=== PATIENT | male | born 1945 | race Caucasian/White ===

== ENCOUNTER 2019-03-10 18:08 | Emergency (ER) | payer BC, MEDICARE ==
[2019-03-10 18:57] LABS: GLUCOSE, URINE (UA) NEGATIVE (NEGATIVE); KETONES,URINE (UA) TRACE mg/dL (NEGATIVE); LEUKOCYTE ESTERASE, URINE TRACE (NEGATIVE); NITRITE,URINE POSITIVE (NEGATIVE); OCCULT BLOOD,URINE LARGE (NEGATIVE); PROTEIN,URINE 100 mg/dL (NEGATIVE); UROBILINOGEN,URINE 1 (NORMAL) E.U./dL (NORMAL)
[2019-03-10 19:00] LABS: BILIRUBIN,URINE NEGATIVE (NEGATIVE); ICTOTEST,URINE NEGATIVE
[2019-03-10 19:01] LABS: CLARITY,URINE CLOUDY (CLEAR)
[2019-03-10 19:05] LABS: BACTERIA,URINE Many /HPF (None Seen); RBC,URINE TNTC /HPF (0-5); SQUAMOUS EPITHELIAL CELL,UR NONE SEEN (<= Few); WBC CLUMPS,URINE PRESENT
--- NOTE | 2019-03-10 19:25 | ED Physician Documentation ---
PD HPI MALE - Stated complaint Stated Complaint: BLOOD IN URINE - Chief complaint Chief Complaint: General - History obtained from History obtained from: Patient - History of Present Illness Timing - onset: Yesterday Timing - details: Abrupt onset Associated symptoms: Unable to urinate, Hematuria. No: Dysuria, Discharge, Abdominal pain Recently seen: Clinic ([address] Prescott, Urology) - Additional information Additional information: This is a 73-year-old man who presents with complaints that he has had blood in his urine for years he is never followed up with anybody about it and then about 2 weeks ago he started passing some clots so he made an appointment with the uro logist at the [facility]. He saw him for the first time about 10 days ago and they have scheduled a cystoscopy on March 21. Yesterday he started passing blood again and then at 11 AM this morning he was unable at all. He was passing clots prior to that. He denied any pain with urination. Not dizzy. He does have a prior history of TURP 5 years ago. He is on Eliquis for about the past 2-1/2 years due to a flutter and history of 4 ablations. He has no fever. Review of Systems Constitutional: denies: Fever GI: denies: Abdominal Pain : reports: Unable to Void, Hematuria. denies: Dysuria, Frequency Neurologic: denies: Near syncope PD PAST MEDICAL HISTORY - Past Medical History Cardiovascular: Hypertension, High cholesterol : Kidney stones - Past Surgical History Past Surgical History: Yes General: Cholecystectomy, Colonoscopy Cardiovascular: Other HEENT: Cataracts, Detached retina repair - Present Medications Home Medications: Ambulatory Orders Medication Instructions Recorded Confirmed Allopurinol 100 mg PO DAILY 01/07/16 01/07/16 Atorvastatin Calcium [Lipitor] 40 mg PO DAILY 01/07/16 Valsartan 40 mg PO BID 01/07/16 Amoxicillin 500 mg PO TID #30 tablet 01/08/16 Ciprofloxacin HCl [Cipro] 500 mg PO BID #20 tablet 03/10/19 - Allergies Allergies/Adverse Reactions: Allergies Allergy/AdvReac Type Severity Reaction Status Date / Time No Known Drug Allergies Allergy Verified 01/08/16 14:51 - Social History Does the pt smoke?: No Smoking Status: Never smoker Does the pt drink ETOH?: Yes PD ED PE NORMAL - Vitals Vital signs reviewed: Yes - General General: Alert and oriented X 3, No acute distress, Well developed/nourished - HEENT HEENT: Atraumatic, Other (No scleral icterus) - Abdomen Abdomen: Normal bowel sounds, Soft, Non tender, Non distended - Male Male : Other (Liao catheter had already been passed by nursing staff and there was about 750 cc of bloody urine with some clots in it.) - Derm Derm: Normal color, No rash - Neuro Neuro: Alert and oriented X 3, 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, Other (No gross neurological deficits.) Results - Vitals Vitals: Vital Signs - 24 hr 03/10/19 03/10/19 18:19 20:58 Temperature 36.6 C Heart Rate 67 70 Respiratory 18 17 Rate Blood Pressure 181/76 H 157/77 H O2 Saturation 98 95 Oxygen O2 Source Room air - Labs Labs: Laboratory Tests 03/10/19 18:32 Urine Color BROWN Urine Clarity CLOUDY Urine pH 7.0 Ur Specific [place]ett 1.020 Urine Protein 100 H Urine Glucose (UA) NEGATIVE Urine Ketones TRACE Urine Occult Blood LARGE H Urine Nitrite POSITIVE H Urine Bilirubin NEGATIVE Urine Urobilinogen 1 (NORMAL) Ur Leukocyte Esterase TRACE H Urine RBC TNTC H Urine WBC >25 H Urine WBC Clumps PRESENT Ur Squamous Epith Cells NONE SEEN Urine Bacteria Many H Ur Microscopic Review INDICATED Urine Culture Comments INDICATED PD MEDICAL DECISION MAKING - ED course Complexity details: reviewed results, d/w patient ED course: Patient got initially good relief with the catheter being passed but then he was unable to have any urine flow through it so it was irrigated per nursing staff and several clots came out after which there was good urine flow and he felt better. His urine had many red blood cells but also white blood cells and a culture has been obtained. I elected to put him on Cipro awaiting the results of the culture. He was instructed on how to deal with the Liao at home and discharged with a Liao catheter in place. He is to contact Dr. Prescott the urologist tomorrow about how long to leave the Liao in whether to come in and have it removed prior to the cystoscopy or not. Departure - Departure Disposition: 01 Home, Self Care Clinical Impression: Urinary retention Hematuria Qualifiers: Hematuria type: unspecified type Qualified Code(s): R31.9 - Hematuria, unspecified UTI (urinary tract infection) Qualifiers: Urinary tract infection type: site unspecified Hematuria presence: with hematuria Qualified Code(s): N39.0 - Urinary tract infection, site not specified Condition: Good Instructions: Leg Bag Care Dc, ED Hematuria, ED UTI Cystitis Male Follow-Up: pamela,doctor [Other] Prescriptions: Ciprofloxacin HCl [Cipro] 500 mg PO BID #20 tablet Comments: Keep the leg bag emptied. Take the Cipro as prescribed. Contact your urologist, Dr. Prescott, About the fact that you are in the emergency department passing clots and had to have a catheter placed. Return to the emergency depar tment if you are unable to urinate through the catheter. Discharge Date/Time: 03/10/19 21:00
[2019-03-10] MEDS ORDERED: CIPROFLOXACIN 250 MG TABLET PO STA (20:24)
[2019-03-10 20:59] VITALS: BP 157/77
== END 2019-03-10 21:00 | disposition home or self-care (01) ==
LOC: ED 18:08
DX: N39.0 Urinary tract infection, site not specified (principal); R31.9 Hematuria, unspecified; R33.9 Retention of urine, unspecified; Z79.01 Long term (current) use of anticoagulants; I48.92 Unspecified atrial flutter; I10 Essential (primary) hypertension; Z87.442 Personal history of urinary calculi
CPT/HCPCS: 51702; 81001; 87086; 99283; 99284; A9270; 81003

== ENCOUNTER 2019-03-12 14:24 | Emergency (ER) | payer MEDICARE ==
[2019-03-12 14:58] VITALS: BP 137/68
--- NOTE | 2019-03-12 15:14 | ED Physician Documentation ---
PD HPI MALE - Stated complaint Stated Complaint: MALE - CATHETER FLUSH - Chief complaint Chief Complaint: Abd Pain - History obtained from History obtained from: Patient (He has long-standing hematuria. Stopped his Eliquis for atrial flutter 3 days ago. Had a catheter placed which is now blocked with a clot.) Review of Systems Constitutional: reports: Reviewed and negative Cardiac: reports: Reviewed and negative Respiratory: reports: Reviewed and negative PD PAST MEDICAL HISTORY - Past Medical History Past Medical History: Yes Cardiovascular: Hypertension, High cholesterol, Atrial flutter Respiratory: None Neuro: None Endocrine/Autoimmune: None GI: None : Indwelling catheter, Kidney stones HEENT: None Psych: None Musculoskeletal: None Derm: None - Past Surgical History Past Surgical History: Yes General: Cholecystectomy, Colonoscopy Cardiovascular: Other HEENT: Cataracts, Detached retina repair - Present Medications Home Medications: Ambulatory Orders Medication Instructions Recorded Confirmed Allopurinol 100 mg PO DAILY 01/07/16 01/07/16 Atorvastatin Calcium [Lipitor] 40 mg PO DAILY 01/07/16 Valsartan 40 mg PO BID 01/07/16 Amoxicillin 500 mg PO TID #30 tablet 01/08/16 Ciprofloxacin HCl [Cipro] 500 mg PO BID #20 tablet 03/10/19 - Allergies Allergies/Adverse Reactions: Allergies Allergy/AdvReac Type Severity Reaction Status Date / Time No Known Drug Allergies Allergy Verified 01/08/16 14:51 - Social History Does the pt smoke?: No Smoking Status: Never smoker Does the pt drink ETOH?: Yes - Immunizations Immunizations are current?: Yes - POLST Patient has POLST: No PD ED PE NORMAL - Vitals Vital signs reviewed: Yes - General General: Alert and oriented X 3, No acute distress - Male Male : Other (He has a leg bag in place that is empty on initial evaluation. It was hand irrigated with sterile water during my and a large clot came out and then the urine was clear.) - Derm Derm: Normal color, Warm and dry - Extremities Extremities: No edema, No calf tenderness / cord - Neuro Neuro: Alert and oriented X 3, Normal speech Results - Vitals Vitals: Vital Signs - 24 hr 03/12/19 14:50 Temperature 37.0 C Heart Rate 73 Respiratory 16 Rate Blood Pressure 137/68 H O2 Saturation 95 Oxygen O2 Source Room air Departure - Departure Disposition: 01 Home, Self Care Clinical Impression: Urinary retention Hematuria Qualifiers: Hematuria type: gross Qualified Code(s): R31.0 - Gross hematuria Condition: Good Record reviewed to determine appropriate education?: Yes Instructions: ED Catheter Care Liao Comments: Drink plenty of fluids. Discuss this happening with your urologist to see if you can get an earlier than 9 days from now which is when you currently have an appointment.
== END 2019-03-12 15:49 | disposition home or self-care (01) ==
LOC: ED 14:24
DX: R31.0 Gross hematuria (principal); R33.9 Retention of urine, unspecified; I10 Essential (primary) hypertension
CPT/HCPCS: 99281; 99283

== ENCOUNTER 2022-02-09 19:34 | Outpatient (CLI) | payer MEDICARE, OTHER | END 2022-02-09 19:35 | disposition short-term general hospital (02) | LOC: EMS 19:34 | DX: S09.90XA Unspecified injury of head, initial encounter (principal); R47.81 Slurred speech; R06.89 Other abnormalities of breathing; W19.XXXA Unspecified fall, initial encounter; Y92.000 Kitchen of unspecified non-institutional (private) residence as the place of occurrence of the external cause | CPT/HCPCS: A0425; A0427 ==